=== PATIENT | female | born 1950 | race Caucasian/White ===

== ENCOUNTER 2019-07-15 09:07 | Day surgery (SDC) | payer MEDICARE, OTHER ==
[~2019-07-15] VITALS: Ht 157.5 cm; Wt 73.6 kg
[2019-07-15] MEDS ORDERED: THYROID30 MG PO (09:37)
== END 2019-07-15 23:10 | disposition home or self-care (01) ==
LOC: MHTC 09:07
PROC: B2111ZZ Fluoroscopy of Multiple Coronary Arteries using Low Osmolar Contrast (ICD-10-PCS; principal; 2019-07-15)
PROC: 4A023N6 Measurement of Cardiac Sampling and Pressure, Right Heart, Percutaneous Approach (ICD-10-PCS; principal; 2019-07-15)
PROC: B2151ZZ Fluoroscopy of Left Heart using Low Osmolar Contrast (ICD-10-PCS; principal; 2019-07-15)
DX: I34.0 Nonrheumatic mitral (valve) insufficiency (principal); I34.1 Nonrheumatic mitral (valve) prolapse; F32.9 Major depressive disorder, single episode, unspecified; D64.9 Anemia, unspecified; Z79.899 Other long term (current) drug therapy; Z88.6 Allergy status to analgesic agent
CPT/HCPCS: 76937; 93005; 93010; 93460; 99152; 99153; C1769; C1894; J1644; J2250; J3010; J7030; J7040; Q9967

== ENCOUNTER → 2024-08-14 | Outpatient (CLI) | payer MEDICARE, OTHER ==
[~2024-08-14] MED LIST: ERGO400; LEVSOD25; MELATONIN5 M1; METO50; Norco 5-325 Ta1 EACH PO; SPIR25; THYROID30 MG PO; Tambocor100 MG; XARELTO20 MG
== END ==
LOC: LAB 13:51 → LAB SHORT 13:51
DX: R82.81 Pyuria (principal)
CPT/HCPCS: 87086

== ENCOUNTER → 2024-10-05 | Outpatient (CLI) | payer MEDICARE, OTHER ==
[2024-10-05 18:22] LABS: Bacterial Vaginosis PCR Negative (NEGATIVE); Candida Group, PCR NOT DETECTED (NOT DETECT); Candida glabrata-krusei, PCR NOT DETECTED (NOT DETECT)
== END | disposition home or self-care (01) ==
LOC: LAB SHORT 15:42 → LAB 15:42
PROVIDERS: Physician Assistant Medical
DX: N94.819 Vulvodynia, unspecified (principal)
CPT/HCPCS: 81515